=== PATIENT | female | born 1980 | race Caucasian/White ===

== ENCOUNTER 2022-06-04 20:57 | Emergency (ER) | payer OTHER ==
[2022-06-04 21:24] VITALS: BP 148/85; PULSE 84; RESP 17; TEMP 98.7; BMI 32.8
[2022-06-05] MEDS ORDERED: DEXAMETHASONE SOD PHOSPHATE 10 MG/1 ML VIAL IM ONE (02:30)
[2022-06-05] MEDS ORDERED: ALBUTEROL SO4 2.5/IPRATROPIUM 0.5 INH SOL 3 ML VIAL.NEB. NEB ONE (02:31)
== END 2022-06-05 03:00 | disposition home or self-care (01) ==
LOC: JER 20:57
PROC: 3E0F7GC Introduction of Other Therapeutic Substance into Respiratory Tract, Via Natural or Artificial Opening (ICD-10-PCS; principal; 2022-06-04)
PROC: 3E0233Z Introduction of Anti-inflammatory into Muscle, Percutaneous Approach (ICD-10-PCS; 2022-06-04)
DX: U07.1 COVID-19 (principal)
CPT/HCPCS: 0241U-QW; 99284-25; J1100

== ENCOUNTER 2023-03-07 15:07 | Emergency (ER) | payer OTHER ==
[2023-03-07 15:13] VITALS: RESP 18; TEMP 98.3; BMI 38.0
[2023-03-07] MEDS ORDERED: LIDOCAINE 5% TOPICAL PATCH TP ONE (15:47)
[2023-03-07] MEDS ORDERED: METHOCARBAMOL 500 MG TABLET PO ONE (15:47)
[2023-03-07] MEDS ORDERED: ACETAMINOPHEN 500 MG TABLET (FP) PO ONE (15:47)
[2023-03-07] MEDS ORDERED: LIDOCAINE 5% TOPICAL PATCH ONE (15:49)
[2023-03-07] MEDS ORDERED: ACETAMINOPHEN 500 MG TABLET (FP) ONE (15:50)
[2023-03-07] MEDS ORDERED: METHOCARBAMOL 500 MG TABLET ONE (15:50)
[2023-03-07] MEDS ORDERED: LOSARTAN POTASSIUM 50 MG TABLET PO ONE (15:51)
[2023-03-07] MEDS ORDERED: LOSARTAN POTASSIUM 50 MG TABLET ONE (16:03)
[2023-03-07 16:25] LABS: PH,URINE 5.5 (5.0-8.0); URINE APPEARANCE CLEAR; URINE BILIRUBIN NEGATIVE (NEGATIVE); URINE COLOR YELLOW; URINE GLUCOSE (UA) NEGATIVE (NEGATIVE); URINE KETONE NEGATIVE (NEGATIVE); URINE LEUK ESTERASE NEGATIVE (NEGATIVE); URINE NITRITE NEGATIVE (NEGATIVE); URINE PROTEIN NEGATIVE (NEGATIVE)
[2023-03-07 16:28] LABS: HCG,QUALITATIVE URINE Negative
[2023-03-07 16:30] VITALS: BP 128/76; PULSE 65
[2023-03-07] MEDS ORDERED: KETOROLAC TROMETHAMINE 30 MG/1 ML VIAL IM ONE (17:37)
[2023-03-07] MEDS ORDERED: KETOROLAC TROMETHAMINE 30 MG/1 ML VIAL ONE (17:39)
== END 2023-03-07 18:38 | disposition home or self-care (01) ==
LOC: JER 15:07 → JERFT 15:07
PROC: 3E0233Z Introduction of Anti-inflammatory into Muscle, Percutaneous Approach (ICD-10-PCS; principal; 2023-03-07)
DX: M54.50 Low back pain, unspecified (principal); W01.0XXA Fall on same level from slipping, tripping and stumbling without subsequent striking against object, initial encounter; Y99.0 Civilian activity done for income or pay
CPT/HCPCS: 72131-TC; 72192-TC; 81003; 84703; 99284-25

== ENCOUNTER 2023-09-28 11:42 | Emergency (ER) | payer OTHER ==
[2023-09-28 12:13] VITALS: BP 136/97; PULSE 75; RESP 17; TEMP 98.3; BMI 37.7
[2023-09-28] MEDS ORDERED: ACETAMINOPHEN 325 MG TABLET (FP) ONE (12:55)
[2023-09-28] MEDS ORDERED: KETOROLAC TROMETHAMINE 30 MG/1 ML VIAL ONE (12:57)
[2023-09-28] MEDS: KETOROLAC TROMETHAMINE 30 MG/1 ML VIAL IM ONE (13:01)
[2023-09-28] MEDS: ACETAMINOPHEN 500 MG TABLET (FP) PO ONE (13:01)
== END 2023-09-28 13:16 | disposition home or self-care (01) ==
LOC: JERFT 11:42
PROC: 3E0233Z Introduction of Anti-inflammatory into Muscle, Percutaneous Approach (ICD-10-PCS; principal; 2023-09-28)
DX: H92.02 Otalgia, left ear (principal); H66.012 Acute suppurative otitis media with spontaneous rupture of ear drum, left ear
CPT/HCPCS: 99284-25